=== PATIENT | male | born 1940 | race Caucasian/White ===

== ENCOUNTER 2024-04-20 10:51 | Day surgery (SDC) | payer MEDICARE, BC ==
[2024-04-20] VITALS (14 sets, daily range): BP systolic 109–139; BP diastolic 50–85; PULSE 62–89; RESP 10–20; TEMP 99.2; O2SAT 93–96
[~2024-04-20] VITALS: Ht 182.9 cm; Wt 73.4 kg
[2024-04-20] MEDS ORDERED: diphenhydrAMINE 25mg capsule PO PRN (11:15)
[2024-04-20] MEDS ORDERED: nitroGLYCERIN 0.4mg SUBLingual tab SL PRN (11:15)
[2024-04-20] MEDS ORDERED: normal saline 1,000 ML IV SCH (11:15)
[2024-04-20] MEDS ORDERED: LORazepam 0.5 MG tablet PO PRN (11:15)
[2024-04-20] MEDS ORDERED: LIDOcaine 1% 30ml preserv. free vial ONE (11:41)
[2024-04-20] MEDS ORDERED: iohexol 350 MG/ML 50ML vial IV ONE ×2 (11:41→12:56)
[2024-04-20] MEDS ORDERED: midazolam 1 mg/ML 2ml injection ONE (11:41)
[2024-04-20] MEDS ORDERED: fentaNYL/PF 50MCG/1 ML 2ML syringe ONE (11:41)
[2024-04-20] MEDS ORDERED: iohexol 350MG/ML 100ml bottle IV ONE (11:42)
[2024-04-20 11:50] LABS: EOSINOPHILS % (AUTO) 0.3 % (0-6); HEMOGLOBIN 13.3 g/dl (14.0-17.9); LYMPHOCYTES # (AUTO) 1.9 X10'3 (1.1-4.8); MONOCYTES # (AUTO) 0.5 X10'3 (0-0.9); MONOCYTES % (AUTO) 6.9 % (2-12); RED CELL DISTRIBUTION WIDTH 13.5 % (11.5-14.5); WHITE BLOOD COUNT 7.4 X10'3 (4.5-11.0)
[2024-04-20 11:52] LABS: BASOPHILS % (AUTO) 0.2 % (0-1); HEMATOCRIT 40.3 % (42.0-52.0); LYMPHOCYTES % (AUTO) 25.1 % (21-51); MEAN CORPUSCULAR HEMOGLOBIN 33.9 PG (27.0-31.0); MEAN CORPUSCULAR HGB CONC 33.1 g/dL (33.0-36.5); MEAN CORPUSCULAR VOLUME 102.4 FL (78-98); MEAN PLATELET VOLUME 9.3 FL (7.4-10.4); NEUTROPHILS % (AUTO) 67.5 % (42-75); PLATELET COUNT 157 X10'3 (140-440); RED BLOOD COUNT 3.93 X10'6 (4.70-6.10)
[2024-04-20 12:17] LABS: ALBUMIN 3.7 G/DL (3.4-5.0); ANION GAP 6 (8-16); BLOOD UREA NITROGEN 23 MG/DL (7-18); BUN/CREATININE RATIO 17.6 (10.0-20.0); CALCIUM 9.6 MG/DL (8.5-10.1); CHLORIDE 104 MMOL/L (99-107); CREATININE 1.31 MG/DL (0.60-1.10); GLUCOSE 116 MG/DL (70-104); PRO BRAIN NATRIURETIC PEPTIDE 7394 PG/ML (0-450); SODIUM 141 MMOL/L (135-145); TOTAL CARBON DIOXIDE 30.7 MMOL/L (24-32); eCRCL 42 ML/MIN; eGFR 52 ML/MIN
[2024-04-20 12:25] LABS: APTT 22 SECONDS (22-32); PROTHROMBIN TIME 10.2 SECONDS (9.0-12.0)
[2024-04-20] MEDS ORDERED: ALBU18HF2 INH (12:34)
[2024-04-20] MEDS ORDERED: OMEG-166 PO (12:34)
[2024-04-20] MEDS ORDERED: FLO0.4C PO (12:34)
[2024-04-20] MEDS ORDERED: METO-384 PO (12:34)
[2024-04-20] MEDS ORDERED: EZET-61 PO (12:34)
[2024-04-20] MEDS ORDERED: CHOL400T PO (12:34)
[2024-04-20] MEDS ORDERED: FINA5TAB11 PO (12:34)
[2024-04-20] MEDS ORDERED: MULT-1085 PO (12:34)
[2024-04-20] MEDS ORDERED: DOCU-337 PO (12:34)
[2024-04-20] MEDS ORDERED: SILD50TA53 PO (12:34)
[2024-04-20] MEDS ORDERED: IBUP100T80 PO (12:34)
[2024-04-20] MEDS ORDERED: HYDR-3973 PO (12:34)
[2024-04-20] MEDS ORDERED: ASPI-611 PO (12:34)
[2024-04-20] MEDS ORDERED: normal saline 1000ml 1,000 ML IV SCH (14:50)
[2024-04-20] MEDS ORDERED: ondansetron/PF 4mg/2ml inj IV PRN (14:50)
[2024-04-20] MEDS ORDERED: HYDROcodone/acetaminophen 5mg/325mg tablet PO PRN (14:50)
[2024-04-20] MEDS ORDERED: proCHLORperazine 10 MG/2 ml inj IV PRN (14:50)
[2024-04-20] MEDS ORDERED: HYDROcodone/acetaminophen 10/325mg tab PO PRN (14:50)
[2024-04-20] MEDS ORDERED: OXAZEpam 15mg capsule PO PRN (14:50)
== END 2024-04-20 19:30 | disposition home or self-care (01) ==
LOC: SSTAY O 10:51
PROVIDERS: ATTEND Internal Medicine Cardiovascular Disease
DX: I35.0 Nonrheumatic aortic (valve) stenosis (principal); I49.1 Atrial premature depolarization; I25.119 Atherosclerotic heart disease of native coronary artery with unspecified angina pectoris; I10 Essential (primary) hypertension; J44.9 Chronic obstructive pulmonary disease, unspecified; Z90.81 Acquired absence of spleen
CPT/HCPCS: 36415; 71046; 80048; 83880; 85025; 85610; 85730; 93005; 93458; 93567; 93880; 99152; 99153; A6258; C1760; C1769; J1644; J2001; J2250; J3010; J7030; Q9967; Z7610; J3490

== ENCOUNTER 2024-05-23 10:31 | Outpatient (CLI) | payer MEDICARE, BC ==
[~2024-05-23 10:31] MED LIST: ALBU18HF2 INH; ASPI-611 PO; CHOL400T PO; DOCU-337 PO; EZET-61 PO; FINA5TAB11 PO; FLO0.4C PO; HYDR-3973 PO; IBUP100T80 PO; METO-384 PO; MULT-1085 PO; OMEG-166 PO; SILD50TA53 PO
[2024-05-23 11:08] LABS: BASOPHILS % (AUTO) 0.4 % (0-1); EOSINOPHILS # (AUTO) 0.3 X10'3 (0-0.9); EOSINOPHILS % (AUTO) 6.6 % (0-6); HEMOGLOBIN 12.6 g/dl (14.0-17.9); LYMPHOCYTES % (AUTO) 38.6 % (21-51); MEAN CORPUSCULAR HEMOGLOBIN 33.4 PG (27.0-31.0); MEAN CORPUSCULAR HGB CONC 33.2 g/dL (33.0-36.5); MEAN CORPUSCULAR VOLUME 100.5 FL (78-98); MEAN PLATELET VOLUME 9.7 FL (7.4-10.4); MONOCYTES # (AUTO) 0.5 X10'3 (0-0.9); MONOCYTES % (AUTO) 9.3 % (2-12); NEUTROPHILS # (AUTO) 2.3 X10'3 (1.8-7.7); NEUTROPHILS % (AUTO) 45.1 % (42-75); PLATELET COUNT 136 X10'3 (140-440); RED BLOOD COUNT 3.78 X10'6 (4.70-6.10); RED CELL DISTRIBUTION WIDTH 13.2 % (11.5-14.5); WHITE BLOOD COUNT 5.1 X10'3 (4.5-11.0)
[2024-05-23 11:16] LABS: APTT 24 SECONDS (22-32); INR 0.9 INR; PROTHROMBIN TIME 10.1 SECONDS (9.0-12.0)
[2024-05-23 11:22] LABS: ALANINE AMINOTRANSFERASE 20 U/L (12-78); ALBUMIN 3.5 G/DL (3.4-5.0); ALBUMIN/GLOBULIN RATIO 1.1 (1.1-1.5); ALKALINE PHOSPHATASE 72 IU/L (46-116); ANION GAP 3 (8-16); ASPARTATE AMINO TRANSFERASE 22 U/L (10-37); BILIRUBIN,TOTAL 0.7 MG/DL (0.1-1.0); BLOOD UREA NITROGEN 25 MG/DL (7-18); CALCIUM 9.6 MG/DL (8.5-10.1); CHLORIDE 105 MMOL/L (99-107); CREATININE 1.25 MG/DL (0.60-1.10); GLUCOSE 107 MG/DL (70-104); POTASSIUM 4.4 MMOL/L (3.5-5.1); SODIUM 138 MMOL/L (135-145); TOTAL CARBON DIOXIDE 29.8 MMOL/L (24-32); TOTAL PROTEIN 6.7 G/DL (6.4-8.2); eGFR 55 ML/MIN
== END 2024-05-23 23:59 | disposition home or self-care (01) ==
LOC: CARD DIAG 10:31
PROVIDERS: ATTEND Internal Medicine Cardiovascular Disease
DX: I08.8 Other rheumatic multiple valve diseases (principal); R06.02 Shortness of breath; I65.29 Occlusion and stenosis of unspecified carotid artery; I77.819 Aortic ectasia, unspecified site; I70.0 Atherosclerosis of aorta; M47.817 Spondylosis without myelopathy or radiculopathy, lumbosacral region; Z90.81 Acquired absence of spleen
CPT/HCPCS: 36415; 71275; 74174; 75572; 80053; 85025; 85610; 85730; C8929; Q9967; 93306